=== PATIENT | female | born 1965 | race Caucasian/White ===

== ENCOUNTER 2016-07-25 11:01 | Emergency (ER) | payer MEDICARE, MEDICAID ==
[2016-07-25] MEDS ORDERED: OXYCODONE-ACETAMINOPHEN 5-325 MG TABLET PO ONE (11:21)
--- NOTE | 2016-07-25 11:25 | ER Document Report ---
ED Extremity Problem, Lower - General Chief Complaint: Knee Pain Stated Complaint: RIGHT KNEE INJURY Notes: 51 yo female c/o right knee pain x 2 weeks. fell in hole, twisted knee. pain to lateral knee, feels unstable. hurts to walk. no previous knee injury TRAVEL OUTSIDE OF THE [place] IN LAST 30 DAYS: No - HPI Patient complains to provider of: Injury Location: Knee - right Where: Home Onset/Duration: Constant, Persistent Quality of pain: Pressure, Sharp Pain Level: 5 Context: Fell, Twisted Recent injury: Yes - 2 wks ago Exacerbated by: Walking Relieved by: Nothing - Related Data Allergies/Adverse Reactions: Penicillins Allergy (Severe, Verified 07/25/16 11:07) Swelling of Throat cephalexin monohydrate [From Keflex] Allergy (Intermediate, Verified 07/25/16 11 :07) Generalized rash Sulfa (Sulfonamide Antibiotics) Allergy (Intermediate, Verified 07/25/16 11:07) Generalized rash tetracycline [Tetracycline] Allergy (Intermediate, Verified 07/25/16 11:07) Generalized rash Past Medical History - General Information source: Patient - Social History Smoking Status: Current Every Day Smoker Frequency of alcohol use: None Drug Abuse: None Lives with: Family Family History: CAD, DM, Hyperlipidemia, Hypertension, Other - Pulmonary emboli Patient has suicidal ideation: No Patient has homicidal ideation: No - Past Medical History Cardiac Medical History: Reports: Hx Hypercholesterolemia, Hx Hypertension Renal/ Medical History: Denies: Hx Peritoneal Dialysis GI Medical History: Reports: Hx Diverticulitis, Hx Gastritis, Hx Gastroesophageal Reflux Disease Musculoskeltal Medical History: Reports Hx Arthritis, Reports Hx Musculoskeletal Deformity, Reports Hx Musculoskeletal Trauma Psychiatric Medical History: Reports: Hx Depression Past Surgical History: Reports: Hx Adenoidectomy, Hx Appendectomy, Hx Cholecystectomy, Hx Oral Surgery, Hx Orthopedic Surgery, Hx Tonsillectomy, Hx Tubal Ligation - Immunizations Hx Diphtheria, Pertussis, Tetanus Vaccination: Yes Review of Systems - Review of Systems Constitutional: No symptoms reported EENT: No symptoms reported Cardiovascular: No symptoms reported Respiratory: No symptoms reported Gastrointestinal: No symptoms reported Genitourinary: No symptoms reported Female Genitourinary: No symptoms reported Musculoskeletal: See HPI Skin: No symptoms reported Hematologic/Lymphatic: No symptoms reported Neurological/Psychological: No symptoms reported Physical Exam - Vital signs Vitals: Temp Pulse Resp BP Pulse Ox 98.0 F 87 18 115/70 94 07/25/16 11:07 07/25/16 11:07 07/25/16 11:07 07/25/16 11:07 07/25/16 11:07 Interpretation: Normal - General General appearance: Appears well, Alert In distress: None Notes: obese - HEENT Head: Normocephalic, Atraumatic Eyes: Normal Pupils: PERRL - Respiratory Respiratory status: No respiratory distress Chest status: Nontender Breath sounds: Normal Chest palpation: Normal - Cardiovascular Rhythm: Regular Heart sounds: Normal auscultation Murmur: No - Abdominal Inspection: Normal Distension: No distension Bowel sounds: Normal Tenderness: Nontender Organomegaly: No organomegaly - Back Back: Normal, Nontender - Extremities General upper extremity: Normal inspection, Nontender, Normal color, Normal ROM , Normal temperature Knee: Tender - right lateral compartment, Pain with ROM, Popliteal fossa tender - mild, Tender joint line - mild, Unable to bear weight - antalgic gait. No: Abrasion, Deformity, Dislocation, Drawer's test instability, Ecchymosis, Instability, Laxity with valgus stress, Laxity with varus stress - Neurological Neuro grossly intact: Yes Cognition: Normal Orientation: AAOx4 [place] Coma Scale Eye Opening: Spontaneous [place] Coma Scale Verbal: Oriented Lewis Coma Scale Motor: Obeys Commands Lewis Coma Scale Total: 15 Speech: Normal Motor strength normal: LUE, RUE, LLE, RLE Sensory: Normal - Psychological Associated symptoms: Normal affect, Normal mood - Skin Skin Temperature: Warm Skin Moisture: Dry Skin Color: Normal Course - Vital Signs Vital signs: Temp Pulse Resp BP Pulse Ox 98.0 F 87 18 115/70 94 07/25/16 11:07 07/25/16 11:07 07/25/16 11:07 07/25/16 11:07 07/25/16 11:07 Procedures - Immobilization right knee Immobilizer type: Bony wrap Performed by: PCT Post-Proc Neuro Vasc Exam: Normal Alignment checked and good: Yes Discharge - Discharge Clinical Impression: Knee sprain Qualifiers: Encounter type: initial encounter Involved ligament of knee: unspecified ligament Laterality: right Qualified Code(s): S83.91XA - Sprain of unspecified site of right knee, initial encounter Condition: Stable Disposition: HOME, SELF-CARE Instructions: Use of Crutches ([facility]), Ice & Elevation ([facility]), Oral Narcotic Medication ([facility]), Sprained Knee ([facility]) Additional Instructions: use crutches until able to bear weight without pain wear bony wrap for comfort and support bony, ice and elevate as much as possible follow up with primary care if pain persists more than 1 more week Prescriptions: Hydrocodone/Acetaminophen [[place] 5-325 mg Tablet] 1 tab PO Q4 #20 tablet Ibuprofen [Motrin 800 Mg Tablet] 800 mg PO Q6H #20 tablet
[2016-07-25 13:01] VITALS: BP 118/77
== END 2016-07-25 13:01 | disposition home or self-care (01) ==
LOC: ER 11:01
DX: S83.91XA Sprain of unspecified site of right knee, initial encounter (principal); W18.39XA Other fall on same level, initial encounter; F17.200 Nicotine dependence, unspecified, uncomplicated
CPT/HCPCS: 99283; 73564; A9270

== ENCOUNTER 2016-08-23 14:13 | Emergency (ER) | payer MEDICARE, MEDICAID ==
[2016-08-23] MEDS ORDERED: IBUPROFEN 800 MG TABLET PO ONE (14:44)
--- NOTE | 2016-08-23 14:50 | ER Document Report ---
ED Extremity Problem, Lower - General Chief Complaint: Knee Pain Stated Complaint: RIGHT KNEE PAIN Time Seen by Provider: 08/23/16 14:36 Mode of Arrival: Wheelchair Information source: Patient Notes: 51-year-old female presents to ED for right knee pain x2 months. She went to her primary doctor today and the doctor drained her knee and then give her a cortisone shot into the knee. Patient states that the doctor told her to take Tylenol when she got home. 30 minutes after she got home, the patient states the pain was so bad that she could not walk on her knee. She came back to the emergency room for something for pain. TRAVEL OUTSIDE OF THE [place] IN LAST 30 DAYS: No - HPI Patient complains to provider of: Pain, Swelling Location: Knee - Right Occurred: Other - 2 months Onset/Duration: Intermittent Quality of pain: Sharp, Throbbing Severity: Severe Pain Level: 5 Context: Other - Received a cortisone shot at the doctor's office today and the pain was much worse afterwards Recent injury: No Associated symptoms: Painful ambulation Exacerbated by: Movement, Walking Relieved by: Nothing - Related Data Allergies/Adverse Reactions: Penicillins Allergy (Severe, Verified 07/25/16 11:07) Swelling of Throat cephalexin monohydrate [From Keflex] Allergy (Intermediate, Verified 07/25/16 11 :07) Generalized rash Sulfa (Sulfonamide Antibiotics) Allergy (Intermediate, Verified 07/25/16 11:07) Generalized rash tetracycline [Tetracycline] Allergy (Intermediate, Verified 07/25/16 11:07) Generalized rash Past Medical History - General Information source: Patient - Social History Smoking Status: Current Every Day Smoker Cigarette use (# per day): Yes - Pack per day Chew tobacco use (# tins/day): No Smoking Education Provided: Yes - Less than 2 minute Frequency of alcohol use: Rare Drug Abuse: None Lives with: Family Family History: CAD, DM, Hyperlipidemia, Hypertension, Other - Pulmonary emboli - Past Medical History Cardiac Medical History: Reports: Hx Hypercholesterolemia, Hx Hypertension Pulmonary Medical History: Reports: None EENT Medical History: Reports: None Neurological Medical History: Reports: None Endocrine Medical History: Reports: None Renal/ Medical History: Reports: None Malignancy Medical History: Reports: None GI Medical History: Reports: Hx Diverticulitis, Hx Gastritis, Hx Gastroesophageal Reflux Disease Musculoskeltal Medical History: Reports Hx Arthritis, Reports Hx Musculoskeletal Deformity, Reports Hx Musculoskeletal Trauma Skin Medical History: Reports None Psychiatric Medical History: Reports: Hx Depression Traumatic Medical History: Reports: None Infectious Medical History: Reports: None Past Surgical History: Reports: Hx Adenoidectomy, Hx Appendectomy, Hx Cholecystectomy, Hx Oral Surgery, Hx Orthopedic Surgery, Hx Tonsillectomy, Hx Tubal Ligation - Immunizations Hx Diphtheria, Pertussis, Tetanus Vaccination: Yes Review of Systems - Review of Systems Constitutional: No symptoms reported EENT: No symptoms reported Cardiovascular: No symptoms reported Respiratory: No symptoms reported Gastrointestinal: No symptoms reported Genitourinary: No symptoms reported Female Genitourinary: No symptoms reported Musculoskeletal: Joint pain - right knee pain Skin: No symptoms reported Hematologic/Lymphatic: No symptoms reported Neurological/Psychological: No symptoms reported -: Yes All other systems reviewed and negative Physical Exam - Vital signs Vitals: Temp Pulse Resp BP Pulse Ox 98.5 F 97 17 116/75 95 08/23/16 14:30 08/23/16 14:30 08/23/16 14:30 08/23/16 14:30 08/23/16 14:30 Interpretation: Normal - General General appearance: Appears well, Alert - HEENT Head: Normocephalic, Atraumatic Eyes: Normal Pupils: PERRL - Respiratory Respiratory status: No respiratory distress Chest status: Nontender Breath sounds: Normal Chest palpation: Normal - Cardiovascular Rhythm: Regular Heart sounds: Normal auscultation Murmur: No - Abdominal Inspection: Normal Distension: No distension Bowel sounds: Normal Tenderness: Nontender Organomegaly: No organomegaly - Back Back: Normal, Nontender - Extremities General upper extremity: Normal inspection, Nontender, Normal color, Normal ROM , Normal temperature General lower extremity: Normal color, Normal temperature. No: Jennifer's sign Knee: Tender, Joint effusion, Pain with ROM, Patellar tendon intact, Tender joint line, Unable to bear weight. No: Normal, Nontender, Abrasion, Deformity, Drawer's test instability, Dislocation, Ecchymosis, Instability, Laxity with valgus stress, Laxity with varus stress, Laceration, Popliteal fossa tender, Other - Neurological Neuro grossly intact: Yes Cognition: Normal Orientation: AAOx4 [place] Coma Scale Eye Opening: Spontaneous [place] Coma Scale Verbal: Oriented [place] Coma Scale Motor: Obeys Commands [place] Coma Scale Total: 15 Speech: Normal Motor strength normal: LUE, RUE, LLE, RLE Sensory: Normal - Psychological Associated symptoms: Normal affect, Normal mood - Skin Skin Temperature: Warm Skin Moisture: Dry Skin Color: Normal Course - Re-evaluation Re-evalutation: 08/23/16 20:34 Was given a small prescription for Harmony and told that she needs to follow-up with her primary doctor tomorrow and let her know that the pain has increased. Name and number given for orthopedics for patient to follow-up. - Vital Signs Vital signs: Temp Pulse Resp BP Pulse Ox 97.7 F 84 17 117/69 94 08/23/16 15:29 08/23/16 15:29 08/23/16 14:30 08/23/16 15:29 08/23/16 15:29 Discharge - Discharge Clinical Impression: Right knee pain Qualifiers: Chronicity: unspecified Qualified Code(s): M25.561 - Pain in right knee Condition: Stable Disposition: HOME, SELF-CARE Additional Instructions: You were seen today for right knee pain after you were seen by your primary doctor. You state that the primary doctor drained some fluid from the knee and gave you a steroid shot into the knee. We will give you some ibuprofen in the emergency room and sent to home on a small prescription of narcotics. You will need to follow-up with her primary doctor by telephone today and schedule a follow-up appointment with primary doctor and with orthopedics for this knee. The knee was injured on 25 July and patient was seen in the emergency room at that time. STACEY WRAP: A compression dressing (stacey wrap) has been placed. This helps hold the area still. It limits swelling and internal bleeding. The wrap should be comfortably snug -- not tight. You should feel a sense of pressure, but not severe pain under the wrap. Unless the physician tells you otherwise, you can adjust the wrap for comfort. If the wrap causes symptoms suggesting it's too tight -- uncomfortable pressure, swelling or discoloration beyond the wrap, numbness, or severe pain - - you must loosen the wrap. If these symptoms don't resolve promptly, return for re-evaluation. USE OF CRUTCHES: The doctor has recommended that you not bear weight at this time. You will need to use crutches. Adjust the crutches so the tops come to about two inches under the armpit while you are standing upright. Use your hands -- not your armpits -- to support your weight. To get into a chair, support yourself with one crutch on the injured side. Hold the chair with the other hand, then lower yourself while putting all your weight on the good leg. Going up stairs is `good leg up, step up, then bring up crutches and bad leg.' Down stairs is `bad leg and crutches down, then bring good leg down.' If you develop numbness or swelling in an arm or hand, you are using the crutches incorrectly. Return if you are having any problems with the crutches. ICE & ELEVATION: Apply ice packs frequently against the painful area. Many different schedules are recommended, such as "20 minutes on, 20 minutes off" or "one hour ice, two hours rest." If you need to work, you may need to go longer between ice treatments. You should plan to have the area ice packed AT LEAST one- fourth of the time. The ice should be applied over the wrap, tape, or splint, or over a layer of cloth -- not directly against the skin. Some ice bags have a built-in cloth and can be put directly on the skin. Your injured part should be elevated as much as possible over the next 48 hours. Try to keep the injury above the level of the heart. Avoid use of the injured area. Elevation and rest will decrease the swelling. ORAL NARCOTIC MEDICATION: You have been given a prescription for pain control. This medication is a narcotic. It's best taken with food, as nausea can result if taken on an empty stomach. Don't operate machinery or drive within six hours of taking this medication. Do not combine this medicine with alcohol, or with any medication which can cause sedation (such as cold tablets or sleeping pills) unless you get permission from the physician. Narcotics tend to cause constipation. If possible, drink plenty of fluids and eat a diet high in fiber and fruits. Please be aware that prescription narcotics also have the potential for abuse. People become addicted to these medications because of the general sense of wellbeing that they induce. This feeling along with a significant reduction in tension, anxiety, and aggression provides a stimulating seductive quality to these drugs. Once your pain is under control, we encourage you to discard your unused narcotics. FOLLOW-UP CARE: If you have been referred to a physician for follow-up care, call the physician s office for an appointment as you were instructed or within the next two days. If you experience worsening or a significant change in your symptoms, notify the physician immediately or return to the Emergency Department at any time for re-evaluation. Prescriptions: Hydrocodone/Acetaminophen [[place] 5-325 mg Tablet] 1 tab PO Q6HP PRN #7 tablet PRN Reason: Forms: Smoking Cessation Education Referrals: LEXI TAYLOR DO [ACTIVE STAFF] - Follow up as needed
[2016-08-23 15:33] VITALS: BP 117/69
== END 2016-08-23 15:36 | disposition home or self-care (01) ==
LOC: ER 14:13
DX: M25.561 Pain in right knee (principal); R26.2 Difficulty in walking, not elsewhere classified; F17.210 Nicotine dependence, cigarettes, uncomplicated; M19.90 Unspecified osteoarthritis, unspecified site; Z98.890 Other specified postprocedural states
CPT/HCPCS: 99283; A9270

== ENCOUNTER 2019-02-24 12:15 | Emergency (ER) | payer MEDICARE, MEDICAID ==
[2019-02-24] MEDS ORDERED: MORPHINE SULFATE 10 MG/ML INJ IV ONE ×2 (12:23→18:17)
[2019-02-24] MEDS ORDERED: ONDANSETRON HCL INJ/PF 4 MG/2 ML SDV IV ONE (12:23)
[2019-02-24] MEDS ORDERED: NORMAL SALINE 1000 ML 1,000 ML IV ONE (12:23)
--- NOTE | 2019-02-24 12:25 | ER Document Report ---
ED Medical Screen (RME) - General Chief Complaint: Abdominal Pain Stated Complaint: ABDOMINAL PAIN Time Seen by Provider: 02/24/19 12:20 TRAVEL OUTSIDE OF THE [place] IN LAST 30 DAYS: No - HPI Notes: 02/24/19 12:23 Patient is a 54-year-old female complaining of mid abdominal pain for the past 3 days with decreased p.o. intake. Patient states that she last had a bowel movement 2 days ago. Patient states that she does have a large ventral hernia in the area. She is urinating normally and having normal bowel movements. No surgical history to her abdomen. No fever, chest pain, shortness of breath, vo miting, diarrhea. I have treated and performed a rapid initial assessment of this patient. A comprehensive ED assessment and evaluation of the patient, analysis of test results and completion of medical decision making process will be conducted by additional ED providers. PHYSICAL EXAMINATION: GENERAL: Well-appearing, well-nourished and in no acute distress. A&Ox4. Answers questions appropriately. abd: obese, difficult to fully assess in chair. + significant tenderness mid abd and epigastrum. Mild lower tenderness. - Related Data Allergies/Adverse Reactions: Penicillins Allergy (Severe, Verified 02/24/19 12:20) Swelling of Throat cephalexin monohydrate [From Keflex] Allergy (Intermediate, Verified 02/24/19 12:20) Generalized rash Sulfa (Sulfonamide Antibiotics) Allergy (Intermediate, Verified 02/24/19 12:20) Generalized rash tetracycline [Tetracycline] Allergy (Intermediate, Verified 02/24/19 12:20) Generalized rash Home Medications: xanax. seroquel. BP meds. mazapime Past Medical History - Social History Chew tobacco use (# tins/day): No Frequency of alcohol use: None Drug Abuse: None - Past Medical History Cardiac Medical History: Reports: Hx Hypercholesterolemia, Hx Hypertension Renal/ Medical History: Denies: Hx Peritoneal Dialysis GI Medical History: Reports: Hx Diverticulitis, Hx Gastritis, Hx Gastroesophageal Reflux Disease Musculoskeltal Medical History: Reports Hx Arthritis, Reports Hx Musculoskeletal Deformity, Reports Hx Musculoskeletal Trauma Psychiatric Medical History: Reports: Hx Depression Past Surgical History: Reports: Hx Adenoidectomy, Hx Appendectomy, Hx Cholecystectomy, Hx Oral Surgery, Hx Orthopedic Surgery, Hx Tonsillectomy, Hx Tubal Ligation - Immunizations Hx Diphtheria, Pertussis, Tetanus Vaccination: Yes
[2019-02-24 13:15] LABS: ABSOLUTE BASOPHILS # (AUTO) 0.1 10^3/uL (0.0-0.2); ABSOLUTE EOSINOPHILS # (AUTO) 0.3 10^3/uL (0.0-0.6); ABSOLUTE LYMPHOCYTES (AUTO) 4.4 10^3/uL (0.5-4.7); ABSOLUTE MONOCYTES (AUTO) 0.9 10^3/uL (0.1-1.4); ABSOLUTE NEUT (AUTO) 9.4 10^3/uL (1.7-8.2); BASOPHILS % (AUTO) 0.8 % (0-2); EOSINOPHILS % (AUTO) 1.8 % (0-6); HEMATOCRIT 46.8 % (36.0-47.0); HEMOGLOBIN 16.2 g/dL (12.0-15.5); LYMPHOCYTES % (AUTO) 29.5 % (13-45); MEAN CORPUSCULAR HEMOGLOBIN 31.4 pg (27.0-33.4); MEAN CORPUSCULAR HGB CONC 34.5 g/dL (32.0-36.0); MEAN CORPUSCULAR VOLUME 91 fl (80-97); PLATELET COUNT 352 10^3/uL (150-450); RED BLOOD COUNT 5.15 10^6/uL (3.72-5.28); RED CELL DISTRIBUTION WIDTH 13.6 % (11.5-14.0); SEGMENTED NEUTROPHILS % (AUTO) 61.9 % (42-78); TOTAL CELLS COUNTED % (AUTO) 100 %; WHITE BLOOD COUNT 15.1 10^3/uL (4.0-10.5)
[2019-02-24 13:29] LABS: ALBUMIN 4.2 g/dL (3.5-5.0); ALKALINE PHOSPHATASE 141 U/L (38-126); ANION GAP 11 (5-19); ASPARTATE AMINO TRANSFERASE 26 U/L (14-36); BILIRUBIN,DIRECT 0.1 mg/dL (0.0-0.4); BILIRUBIN,TOTAL 0.4 mg/dL (0.2-1.3); BLOOD UREA NITROGEN 8 mg/dL (7-20); CALCIUM 9.2 mg/dL (8.4-10.2); CARBON DIOXIDE 25 mmol/L (22-30); CHLORIDE 104 mmol/L (98-107); GLUCOSE 188 mg/dL (75-110); TOTAL PROTEIN 8.1 g/dL (6.3-8.2)
[2019-02-24 14:17] LABS: APPEARANCE,URINE SLIGHTLY-CLOUDY; BILIRUBIN,URINE NEGATIVE (NEGATIVE); COLOR,URINE YELLOW; GLUCOSE, URINE NEGATIVE (NEGATIVE); KETONES,URINE NEGATIVE (NEGATIVE); PROTEIN,URINE NEGATIVE (NEGATIVE); URINE SPECIFIC GRAVITY 1.011
--- NOTE | 2019-02-24 15:59 | ER Document Report ---
ED General - General Chief Complaint: Abdominal Pain Stated Complaint: ABDOMINAL PAIN Time Seen by Provider: 02/24/19 12:20 Primary Care Provider: [facility] [Provider Group] - Follow up as needed Notes: This 54-year-old woman presents to the emergency department with a complaint of abdominal pain for the past 3 days. She has had increasing abdominal pain with pain in the diffuse abdominal region. She has a history of a ventral hernia, denies nausea vomiting or change in bowel function. She had a bowel movement earlier today. Patient states that her pain is 10/10. No fever, chills, no dysuria or back pain. TRAVEL OUTSIDE OF THE [place] IN LAST 30 DAYS: No - Related Data Allergies/Adverse Reactions: Penicillins Allergy (Severe, Verified 02/24/19 12:20) Swelling of Throat cephalexin monohydrate [From Keflex] Allergy (Intermediate, Verified 02/24/19 12:20) Generalized rash Sulfa (Sulfonamide Antibiotics) Allergy (Intermediate, Verified 02/24/19 12:20) Generalized rash tetracycline [Tetracycline] Allergy (Intermediate, Verified 02/24/19 12:20) Generalized rash Home Medications: xanax. seroquel. BP meds. mazapime Past Medical History - Social History Smoking Status: Current Every Day Smoker Chew tobacco use (# tins/day): No Frequency of alcohol use: None Drug Abuse: None Family History: CAD, DM, Hyperlipidemia, Hypertension, Other - Pulmonary emboli Patient has suicidal ideation: No Patient has homicidal ideation: No - Past Medical History Cardiac Medical History: Reports: Hx Hypercholesterolemia, Hx Hypertension Renal/ Medical History: Denies: Hx Peritoneal Dialysis GI Medical History: Reports: Hx Diverticulitis, Hx Gastritis, Hx Gastroesophageal Reflux Disease Musculoskeletal Medical History: Reports Hx Arthritis, Reports Hx Musculoskeletal Deformity, Reports Hx Musculoskeletal Trauma Psychiatric Medical History: Reports: Hx Depression Past Surgical History: Reports: Hx Adenoidectomy, Hx Appendectomy, Hx Cholecystectomy, Hx Oral Surgery, Hx Orthopedic Surgery, Hx Tonsillectomy, Hx Tubal Ligation - Immunizations Hx Diphtheria, Pertussis, Tetanus Vaccination: Yes Review of Systems - Review of Systems Notes: REVIEW OF SYSTEMS GENERAL: Negative for any nausea, vomiting, fevers, chills, or weight loss. NEUROLOGIC: Negative for dysphagia, dysarthria, hemiparesis, hemisensory defici ts, vertigo, ataxia. HEENT: Negative for any head trauma, neck trauma, neck stiffness, photophobia, phonophobia, sinusitis, rhinitis. CARDIAC: Negative for any chest pain, dyspnea on exertion, paroxysmal nocturnal dyspnea, peripheral edema. PULMONARY: Negative for any shortness of breath, wheezing, COPD, or TB exposure. GASTROINTESTINAL: + abdominal pain, no nausea, vomiting GENITOURINARY: Negative for any dysuria, hematuria, incontinence. INTEGUMENTARY: Negative for any rashes RHEUMATOLOGIC: Negative for any joint pains, photosensitive rashes, history of vasculitis or kidney problems. HEMATOLOGIC: Negative for any abnormal bruising, frequent infections or bleeding. Physical Exam - Notes Notes: Reviewed vital signs and nursing note as charted by RN. CONSTITUTIONAL: [place] obese 54-year-old woman in moderate distress secondary to abdominal pain. HEENT: Normocephalic; atraumatic; No swelling, PERRL; Conjunctivae clear, no drainage; EOMI, External ears without lesions; External auditory canal is patent; TMs without erythema, landmarks clear and well visualized; no rhinorrhea; Pharynx without erythema or lesions, no tonsillar hypertrophy, airway patent, mucous membranes pink and moist NECK: Supple, no JVD or bruits CARD: Regular rate and rhythm; no murmurs, no rubs, no gallops, no chest wall tenderness RESP: Clear, no wheezes rales or rhonchi ABD/GI: Normal bowel sounds; distended, large cantaloupe sized anterior ventricle hernia, reduces easily, markedly tender.no rebound, no guarding, no palpable organomegaly EXT: No edema clubbing or cyanosis SKIN: Warm and dry NEURO: Alert and oriented x3 with no focal motor or sensory or cerebellar abnormalities. Course - Re-evaluation Re-evalutation: 02/24/19 19:15 Patient has improved after receiving pain medications CT scan of the abdomen reviewed patient has a large ventral hernia with no incarceration transverse colon noted to be within the hernia sac. I discussed this finding with the patient and explained to her that she can go home, follow-up with surgery regarding repair and we will give her a short-term course of tramadol for pain. The patient is agreeable with this plan and acknowledges an understanding of the follow-up. - Laboratory Result Diagrams: 02/24/19 13:00 02/24/19 13:00 Laboratory results interpreted by me: 11/23/19 11/23/19 11/23/19 12:30 13:00 13:00 WBC 15.1 H Hgb 16.2 H Absolute Neuts (auto) 9.4 H Glucose 188 H Alkaline Phosphatase 141 H Urine Urobilinogen 2.0 H 02/24/19 19:16 I have reviewed laboratory data and used this information for the treatment decisions regarding the patient. - Diagnostic Test Radiology reviewed: Image reviewed, Reports reviewed - CT scan of the abdomen and pelvis: Large ventral hernia transverse colon noted in the hernia sac, no obstruction noted. Discharge - Discharge Clinical Impression: Ventral hernia Qualifiers: Obstruction and gangrene presence: without obstruction or gangrene Qualified Code(s): K43.9 - Ventral hernia without obstruction or gangrene Abdominal pain Qualifiers: Abdominal location: generalized Qualified Code(s): R10.84 - Generalized abdominal pain Condition: Good Disposition: HOME, SELF-CARE Instructions: Abdominal Pain ([facility]), Hernia ([facility]) Prescriptions: Tramadol HCl [Ultram 50 mg Tablet] 50 mg PO Q4HP PRN #12 tab PRN Reason: Referrals: [facility] [Provider Group] - Follow up as needed
--- NOTE | 2019-02-24 16:03 | RADIOLOGY REPORT (SQ) ---
EXAM DESCRIPTION: CT ABD/PELVIS WITH IV ORAL COMPLETED DATE/TIME: 02/24/2019 3:42 pm REASON FOR STUDY: abd pain COMPARISON: 12/01/2015 TECHNIQUE: CT scan of the abdomen and pelvis performed using helical scanning technique with dynamic intravenous contrast injection. Additional oral contrast. Images reviewed with lung, soft tissue, a nd bone windows. Reconstructed coronal and sagittal MPR images reviewed. Delayed images for evaluatio n of the urinary system also acquired. All images stored on PACS. All CT scanners at this facility use dose modulation, iterative reconstruction, and/or weight based d osing when appropriate to reduce radiation dose to as low as reasonably achievable (ALARA). [facility]: Dose Right [facility]: CareDose [facility]: Dose Right [facility]: Teradose 4D [facility]: Queplix CONTRAST TYPE AND DOSE: contrast/concentration: Isovue 350.00 mg/ml; Total Contrast Delivered: 100.0 ml; Total Saline Delivered: 72.0 ml RENAL FUNCTION: GFR > 60. RADIATION DOSE: CT Rad equipment meets quality standard of care and radiation dose reduction techniq ues were employed. CTDIvol: 20.9 - 21.0 mGy. DLP: 2408 mGy-cm.. LIMITATIONS: None. FINDINGS: LOWER CHEST: Bibasilar ground-glass pulmonary opacity and irregular interstitial opacity. LIVER: Normal size. Hepatic steatosis. No masses. No dilated ducts. SPLEEN: Normal size. No focal lesions. PANCREAS: No masses. No significant calcifications. No adjacent inflammation or peripancreatic fluid collections. Pancreatic duct not dilated. GALLBLADDER: Surgically absent. ADRENAL GLANDS: No significant masses or asymmetry. RIGHT KIDNEY AND URETER: No solid masses. No significant calcifications. No hydronephrosis or hyd roureter. LEFT KIDNEY AND URETER: No solid masses. No significant calcifications. No hydronephrosis or hydr oureter. AORTA AND VESSELS: No aneurysm. No dissection. Renal arteries, SMA, celiac without stenosis. RETROPERITONEUM: No retroperitoneal adenopathy, hemorrhage or masses. BOWEL AND PERITONEAL CAVITY: No masses or inflammatory changes. No free fluid or peritoneal masses. APPENDIX: Surgically absent. PELVIS: No mass. There are multiple bilateral ovarian/ adnexal cysts, the largest on the left measur ing at least 6.7 cm. No free fluid. Normal bladder. ABDOMINAL WALL: There is a large, multicomponent midline ventral hernia containing a single loop of t ransverse colon, without evidence of obstruction. BONES: No significant or acute findings. OTHER: No other significant finding. IMPRESSION: 1. No acute CT findings of the abdomen or pelvis to explain right-sided abdominal pain. The appendix is surgically absent. No evidence of urinary tract calculus or hydronephrosis. 2. There is a large, multicomponent midline ventral hernia containing a single loop of transverse col on, without evidence of obstruction. 3. There are multiple bilateral ovarian/ adnexal cysts, the largest on the left measuring at least 6. 7 cm. Recommend nonemergent dedicated pelvic ultrasound to further evaluate these lesions given size in the postmenopausal setting. TECHNICAL DOCUMENTATION: JOB ID: [id number] Quality ID # [id number]: Final reports with documentation of one or more dose reduction techniques (e.g., Au tomated exposure control, adjustment of the mA and/or kV according to patient size, use of iterative reconstruction technique) 2010 [employer]- All Rights Reserved Reading location - IP/workstation name: [email or web address]
[2019-02-24] MEDS ORDERED: HYDROMORPHONE HCL INJ/PF 2 MG/ML AMPULE IV ONE (16:30)
[2019-02-24] MEDS ORDERED: LORAZEPAM INJ 2 MG/1 ML VIAL IV ONE (18:16)
[2019-02-24 19:44] VITALS: BP 139/89
== END 2019-02-24 19:48 | disposition home or self-care (01) ==
LOC: ER 12:15
DX: K43.9 Ventral hernia without obstruction or gangrene (principal); R10.84 Generalized abdominal pain; F17.200 Nicotine dependence, unspecified, uncomplicated; E78.00 Pure hypercholesterolemia, unspecified; I10 Essential (primary) hypertension; Z90.49 Acquired absence of other specified parts of digestive tract; Z88.0 Allergy status to penicillin; Z88.2 Allergy status to sulfonamides; Z98.51 Tubal ligation status; Z88.3 Allergy status to other anti-infective agents
CPT/HCPCS: 96376; 99284; 96361; 96374; 96375; 36415; 83690; 85025; 80053; 81001; 74177; J2270; J2060; J2405; J7030

== ENCOUNTER → 2020-01-25 | Outpatient (CLI) | payer MEDICARE, MEDICAID ==
--- NOTE | 2020-01-25 15:01 | RADIOLOGY REPORT (SQ) ---
EXAM DESCRIPTION: CT ABD/PELVIS COMBO IMAGES COMPLETED DATE/TIME: 01/25/2020 2:44 pm REASON FOR STUDY: (R10.9)UNSPECIFIED ABDOMINAL PAIN R10.9 UNSPECIFIED ABDOMINAL PAIN COMPARISON: 02/24/2019 TECHNIQUE: CT scan of the abdomen and pelvis performed with and without intravenous contrast, and wi th oral contrast. Contrasted imaging performed helical scanning technique and dynamic intravenous con trast injection. Images reviewed with lung, soft tissue, and bone windows. Reconstructed coronal and sagittal MPR images reviewed. Delayed images for evaluation of the urinary system also acquired. All images stored on PACS. All CT scanners at this facility use dose modulation, iterative reconstruction, and/or weight based d osing when appropriate to reduce radiation dose to as low as reasonably achievable (ALARA). [facility]: Dose Right [facility]: CareDose [facility]: Dose Right [facility]: Teradose 4D [facility]: Aloqa CONTRAST TYPE AND DOSE: contrast/concentration: Isovue 350.00 mmol/ml; Total Contrast Delivered: 84. 0 ml; Total Saline Delivered: 65.0 ml RENAL FUNCTION: Creatinine 0.6 RADIATION DOSE: CT Rad equipment meets quality standard of care and radiation dose reduction techniq ues were employed. CTDIvol: 24.9 - 29.1 mGy. DLP: 4464 mGy-cm. . LIMITATIONS: None. FINDINGS: NON-CONTRASTED IMAGING: No significant renal or bladder calcifications. No other significa nt organ calcifications. POST-CONTRASTED IMAGING: LOWER CHEST: Focal airspace disease in the right upper lobe along the mediastinal border most likely atelectasis. LIVER: Steatosis. No focal lesions. Mild hepatomegaly. The liver measures just over 19 cm in crani al caudal dimensions. SPLEEN: Normal size. No focal lesions. PANCREAS: No masses. No significant calcifications. No adjacent inflammation or peripancreatic fluid collections. Pancreatic duct not dilated. GALLBLADDER: Surgically absent. ADRENAL GLANDS: Persistent left adrenal fullness most likely hyperplasia. RIGHT KIDNEY AND URETER: No solid masses. No significant calcifications. No hydronephrosis or hyd roureter. LEFT KIDNEY AND URETER: No solid masses. No significant calcifications. No hydronephrosis or hydr oureter. AORTA AND VESSELS: No aneurysm. No dissection. Renal arteries, SMA, celiac without stenosis. RETROPERITONEUM: No retroperitoneal adenopathy, hemorrhage or masses. BOWEL AND PERITONEAL CAVITY: No masses or inflammatory changes. No free fluid or peritoneal masses. APPENDIX: Not visualized. PELVIS: Cystic adnexal lesions are again noted and stable from February 2019. On the left the septat ed or complex cystic lesion measures 6.6 x 6.9 cm. On the right the lesion measures 6.2 x 2.4 cm. ABDOMINAL WALL: Large ventral hernia is again noted containing transverse colon and omental fat. It is unchanged from prior study. No evidence of obstruction. BONES: Degenerative and postsurgical changes in the spine. No acute findings. OTHER: No other significant finding. IMPRESSION: 1. Stable anterior abdominal wall hernia containing omental fat and colon. No obstructi on. 2. Stable complex bilateral adnexal lesions most likely ovarian in origin. 3. Hepatic steatosis and mild hepatomegaly. TECHNICAL DOCUMENTATION: JOB ID: [id number] Quality ID # [id number]: Final reports with documentation of one or more dose reduction techniques (e.g., Au tomated exposure control, adjustment of the mA and/or kV according to patient size, use of iterative reconstruction technique) 2010 [employer]- All Rights Reserved Reading location - IP/workstation name: [email or web address]
== END ==
LOC: RAD 14:14
PROVIDERS: ATTEND Physician Assistant
DX: R10.9 Unspecified abdominal pain (principal); K43.9 Ventral hernia without obstruction or gangrene; K76.0 Fatty (change of) liver, not elsewhere classified; R16.0 Hepatomegaly, not elsewhere classified; N94.89 Other specified conditions associated with female genital organs and menstrual cycle
CPT/HCPCS: 74178; 82565

== ENCOUNTER 2020-01-27 13:54 | Emergency (ER) | payer MEDICARE, MEDICAID ==
[2020-01-27 14:00] VITALS: BP 113/79
--- NOTE | 2020-01-27 14:18 | ER Document Report ---
ED Medical Screen (RME) - General Chief Complaint: Epigastric Pain Stated Complaint: EPIGASTRIC PAIN Time Seen by Provider: 01/27/20 14:16 Primary Care Provider: NE TELLES MD [Primary Care Provider] - Follow up as needed Mode of Arrival: Ambulatory Information source: Patient Notes: 55-year-old female presents to ED for complaint of abdominal pain. She states is been much worse since . She states yesterday she ate some grilled chicken and biscuits and the pain got much worse than it has been. She states she is never had relief from the pain since she was diagnosed with a abdominal hernia a while back. She did recently had a CT that showed abdominal hernia ovarian cyst and fatty liver. I did discuss this with her. She states she has been told she had the abdominal hernia but she was too fat to get it repaired. I explained to her that I would get blood and urine and an ultrasound and have her reexamined by one of the emergency room providers to see you what they can do to help her with her pain. She states she has she would like something to make it so that she could be more comfortable with this large hernia. I have greeted and performed a rapid initial assessment of this patient. A comprehensive ED assessment and evaluation of the patient, analysis of test results and completion of medical decision making process will be conducted by an additional ED providers. TRAVEL OUTSIDE OF THE [place] IN LAST 30 DAYS: No - Related Data Allergies/Adverse Reactions: Penicillins Allergy (Severe, Verified 02/24/19 12:20) Swelling of Throat cephalexin monohydrate [From Keflex] Allergy (Intermediate, Verified 02/24/19 12:20) Generalized rash Sulfa (Sulfonamide Antibiotics) Allergy (Intermediate, Verified 02/24/19 12:20) Generalized rash tetracycline [Tetracycline] Allergy (Intermediate, Verified 02/24/19 12:20) Generalized rash hydromorphone [From Dilaudid] Allergy (Verified 02/25/19 13:41) Past Medical History - Past Medical History Cardiac Medical History: Reports: Hx Hypercholesterolemia, Hx Hypertension Renal/ Medical History: Denies: Hx Peritoneal Dialysis GI Medical History: Reports: Hx Diverticulitis, Hx Gastritis, Hx Gastroesophageal Reflux Disease Musculoskeltal Medical History: Reports Hx Arthritis, Reports Hx Musculoskeletal Deformity, Reports Hx Musculoskeletal Trauma Psychiatric Medical History: Reports: Hx Depression Past Surgical History: Reports: Hx Adenoidectomy, Hx Appendectomy, Hx Cholecystectomy, Hx Oral Surgery, Hx Orthopedic Surgery, Hx Tonsillectomy, Hx Tubal Ligation - Immunizations Hx Diphtheria, Pertussis, Tetanus Vaccination: Yes Physical Exam - Vital signs Vitals: Temp Pulse Resp BP Pulse Ox 97.5 F 96 16 113/79 99 01/27/20 14:00 01/27/20 14:00 01/27/20 14:00 01/27/20 14:00 01/27/20 14:00 Course - Vital Signs Vital signs: Temp Pulse Resp BP Pulse Ox 97.5 F 96 16 113/79 99 01/27/20 14:00 01/27/20 14:00 01/27/20 14:00 01/27/20 14:00 01/27/20 14:00 Doctor's Discharge - Discharge Referrals: NE TELLES MD [Primary Care Provider] - Follow up as needed
[2020-01-27 14:55] LABS: ABSOLUTE BASOPHILS # (AUTO) 0.1 10^3/uL (0.0-0.2); ABSOLUTE EOSINOPHILS # (AUTO) 0.2 10^3/uL (0.0-0.6); ABSOLUTE LYMPHOCYTES (AUTO) 6.5 10^3/uL (0.5-4.7); ABSOLUTE MONOCYTES (AUTO) 1.1 10^3/uL (0.1-1.4); ABSOLUTE NEUT (AUTO) 8.3 10^3/uL (1.7-8.2); BASOPHILS % (AUTO) 0.6 % (0-2); EOSINOPHILS % (AUTO) 1.1 % (0-6); HEMATOCRIT 51.6 % (36.0-47.0); HEMOGLOBIN 17.6 g/dL (12.0-15.5); LYMPHOCYTES % (AUTO) 40.2 % (13-45); MEAN CORPUSCULAR HGB CONC 34.1 g/dL (32.0-36.0); MEAN CORPUSCULAR VOLUME 91 fl (80-97); MONOCYTES % (AUTO) 6.7 % (3-13); PLATELET COUNT 421 10^3/uL (150-450); RED BLOOD COUNT 5.67 10^6/uL (3.72-5.28); RED CELL DISTRIBUTION WIDTH 13.1 % (11.5-14.0); SEGMENTED NEUTROPHILS % (AUTO) 51.4 % (42-78); TOTAL CELLS COUNTED % (AUTO) 100 %; WHITE BLOOD COUNT 16.1 10^3/uL (4.0-10.5)
[2020-01-27 15:00] LABS: APPEARANCE,URINE SLIGHTLY-CLOUDY; BILIRUBIN,URINE NEGATIVE (NEGATIVE); COLOR,URINE YELLOW; GLUCOSE, URINE NEGATIVE (NEGATIVE); KETONES,URINE NEGATIVE (NEGATIVE); LEUKOCYTE ESTERASE,URINE NEGATIVE (NEGATIVE); NITRITE,URINE NEGATIVE (NEGATIVE); PROTEIN,URINE NEGATIVE (NEGATIVE); URINE SPECIFIC GRAVITY 1.015
[2020-01-27 15:09] LABS: ALBUMIN 4.6 g/dL (3.5-5.0); ALKALINE PHOSPHATASE 131 U/L (38-126); ANION GAP 12 (5-19); ASPARTATE AMINO TRANSFERASE 24 U/L (14-36); BILIRUBIN,DIRECT 0.4 mg/dL (0.0-0.4); BLOOD UREA NITROGEN 12 mg/dL (7-20); CARBON DIOXIDE 24 mmol/L (22-30); CHLORIDE 100 mmol/L (98-107); GLUCOSE 131 mg/dL (75-110); POTASSIUM 4.4 mmol/L (3.6-5.0); TOTAL PROTEIN 7.8 g/dL (6.3-8.2)
--- NOTE | 2020-01-27 15:47 | RADIOLOGY REPORT (SQ) ---
EXAM DESCRIPTION: U/S ABDOMEN LIMITED W/O DOP IMAGES COMPLETED DATE/TIME: 01/27/2020 3:27 pm REASON FOR STUDY: right abdominal hernia increased pain COMPARISON: CT abdomen and pelvis 01/25/2020 TECHNIQUE: Targeted grayscale static and dynamic ultrasound imaging of the abdomen was performed LIMITATIONS: None. FINDINGS: Targeted grayscale static and dynamic ultrasound imaging was performed as directed by the patient to the area of concern. As seen on the comparison CT dated 01/25/2020, a large ventral abdom inal wall fascia defect is seen with echogenic contents in the hernia sac. There is no ultrasound ev idence of obstruction, strangulation, incarceration, or fluid collections. IMPRESSION: Ventral abdominal wall hernia without evidence for complication. TECHNICAL DOCUMENTATION: JOB ID: [id number] 2010 [employer]- All Rights Reserved Reading location - IP/workstation name: [email or web address]
== END 2020-01-27 17:11 | disposition left against medical advice (07) ==
LOC: ER 13:54
DX: R10.13 Epigastric pain (principal); E78.00 Pure hypercholesterolemia, unspecified; I10 Essential (primary) hypertension; Z88.2 Allergy status to sulfonamides; Z88.0 Allergy status to penicillin
CPT/HCPCS: 36415; 76705; 80053; 81001; 83690; 85025; 99281; 99284